=== PATIENT | male | born 1995 | race Hispanic/Latino ===

== ENCOUNTER → 2024-07-03 | Day surgery (SDC) | payer BC ==
[~2024-07-03] MED LIST: FENTANYL CITRATE/PF 100MCG/2 ML INJ ONE; FERROUS SULFAT324 MG PO; HYOSCYAMINE0.375 MG PO; LIDOCAINE HCL 2% LOCAL INJ 5 ML SDV VIAL INJ ONE; MIDAZOLAM HCL 2 MG/2 ML VIAL ONE; PROBIOTIC & AC1 EACH PO; PROPOFOL IV EMULSION 10 MG/ML 20 ML VIAL ONE; VITAMIN C500 MG PO
[2024-07-03 17:32] VITALS: TEMP 97.4
[2024-07-03 18:00] VITALS: BP 129/87; PULSE 90; RESP 16; O2SAT 97
== END | disposition home or self-care (01) ==
LOC: OR 13:00
PROVIDERS: ATTEND Internal Medicine Gastroenterology
DX: C18.2 Malignant neoplasm of ascending colon (principal); D12.8 Benign neoplasm of rectum; K92.1 Melena; A04.72 Enterocolitis due to Clostridium difficile, not specified as recurrent; D50.9 Iron deficiency anemia, unspecified; R10.33 Periumbilical pain; R70.0 Elevated erythrocyte sedimentation rate; R03.0 Elevated blood-pressure reading, without diagnosis of hypertension
CPT/HCPCS: 45380; 45381; 45384; J2001; J2250; J2704; J3010

== ENCOUNTER → 2025-04-16 | Day surgery (SDC) | payer BC ==
[~2025-04-16] MED LIST changes: -FENTANYL CITRATE/PF 100MCG/2 ML INJ ONE; +GLUCAGON FOR INJ 1 MG VIAL ONE
[2025-04-16] MEDS: LACTATED RINGER'S 1,000 ML ONE (10:58)
[2025-04-16 11:59] VITALS: TEMP 97.1
[2025-04-16 13:00] VITALS: BP 124/80; PULSE 84; RESP 16; O2SAT 96
== END | disposition home or self-care (01) ==
LOC: OR 10:15
PROVIDERS: ATTEND Internal Medicine Gastroenterology
DX: K29.70 Gastritis, unspecified, without bleeding (principal); Z85.038 Personal history of other malignant neoplasm of large intestine; K29.80 Duodenitis without bleeding; K44.9 Diaphragmatic hernia without obstruction or gangrene; R19.7 Diarrhea, unspecified; Z98.0 Intestinal bypass and anastomosis status; Z90.49 Acquired absence of other specified parts of digestive tract; K64.8 Other hemorrhoids; A49.8 Other bacterial infections of unspecified site; D50.9 Iron deficiency anemia, unspecified; R03.0 Elevated blood-pressure reading, without diagnosis of hypertension; Z68.32 Body mass index [BMI] 32.0-32.9, adult
CPT/HCPCS: 43239; 45380; J1610; J2003; J2250; J2704; J7121; 45378